=== PATIENT | male | born 1955 | race African-American/Black ===

== ENCOUNTER 2017-02-19 12:14 | Emergency (ER) | payer OTHER ==
[~2017-02-19] VITALS: Ht 185.4 cm; Wt 86.6 kg
--- NOTE | ~2017-02-19 | EKG ---
[place] [address] [facility] [place] [address] ELECTROCARDIOGRAM REPORT Name: ROBERT SAMSON [id number] Admission: 02/19/17 Attend Phys: Discharge: 02/19/17 Date of : 57 Report #: [id number] THIS REPORT FOR: //name// [facility] ED Test Date: 2017-02-19 Test Time: 12:18:32 Pat Name: ROBERT SAMSON Department: Room: Gender: M [employer] Tester: YENNY : 1955 Requested By: Elian Hartman Order Number: [id number] MD: Griffin Martinez Measurements Intervals [place] Rate: 90 P: 69 [place]: 155 QRS: 63 QRSD: 92 T: 50 QT: 359 QTc: 440 Interpretive Statements Sinus rhythm Abnormal R-wave progression, early transition Baseline wander in lead(s) V2 No previous ECG available for comparison Electronically Signed On 02-20-2017 7:39:39 CDT by Griffin Martinez [email or web address] <ELECTRONICALLY SIGNED> By: Griffin Martinez MD, [facility] 02/20/17 0739 1218 121 Griffin Martinez MD, [facility] /EPI
[~2017-02-19 12:14] MED LIST: ASPIR-TRIN325 MG PO; FISH OIL 1,001000 M2 PO; NORCO 5-325 TA1 EACH PO; POTASSIUM99 M1 PO; UNICOMPLEX M TA1 TA1 PO
[2017-02-19 13:12] LABS: BASOPHILS 1.3 % (0.0-2.0); EOSINOPHILS 0.7 % (0.0-3.0); HEMATOCRIT 46.1 % (42.0-52.0); HEMOGLOBIN 16.1 gm/dL (14.0-18.0); LYMPHOCYTES 17.2 % (24.0-44.0); MANUAL DIFF NO; MCH 30.9 pg (26.0-34.0); MCHC 34.9 g/dL (28.0-37.0); MCV 88.5 fL (80.0-100.0); PLATELET COUNT 255 thou/uL (150-400); POLYS 75.8 % (36.0-66.0); RBC 5.21 mil/uL (4.50-6.00); RDW 13.5 % (10.5-14.5); WBC 5.3 thou/uL (4.0-11.0)
[2017-02-19 13:21] LABS: ANION GAP 12 mmol/L (7-16); BUN 11 mg/dL (7-18); CALCIUM 8.2 mg/dL (8.5-10.1); CHLORIDE 108 mmol/L (98-107); CO2 22 mmol/L (21-32); CREATININE 0.9 mg/dL (0.7-1.3); GLUCOSE 98 mg/dL (74-106); POTASSIUM 3.6 mmol/L (3.5-5.1); SODIUM 142 mmol/L (136-145)
[2017-02-19 13:33] LABS: ALKALINE PHOSPHATASE 71 U/L (46-116); MAGNESIUM 2.3 mg/dL (1.8-2.4); NT-PRO BRAIN NAT PEPTIDE 46 pg/mL (<300); SALICYLATE < 2.8 mg/dL (2.8-20.0); SGOT 34 U/L (15-37); SGPT 48 U/L (30-65); TOTAL BILIRUBIN 0.4 mg/dL (<0.1-1.0); TOTAL PROTEIN 7.8 g/dL (6.4-8.2); TROPONIN-I 0.07 ng/mL (<0.04-0.07)
[2017-02-19 13:43] LABS: ACETAMINOPHEN < 2 ug/mL (10-30)
[2017-02-19 14:40] VITALS: BP 139/98
== END 2017-02-19 14:44 | disposition home or self-care (01) ==
LOC: ER 12:14
PROVIDERS: Emergency Medicine
DX: F10.120 Alcohol abuse with intoxication, uncomplicated (principal); Z98.890 Other specified postprocedural states